=== PATIENT | male | born 2000 | race Two or more races ===

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

== ENCOUNTER 2024-03-25 06:01 | Emergency (ER) | payer MEDICAID ==
[~2024-03-25] VITALS: Ht 170.2 cm; Wt 72.0 kg
[2024-03-25 06:01] VITALS: BP 152/97; PULSE 91; RESP 20; O2SAT 99
[2024-03-25 06:58] LABS: Basophils # (auto) 0 10 ^3/uL (0-0.2); Basophils % (auto) 0.2 % (0.0-2.0); Eosinophils # (auto) 0 10 ^3/uL (0-0.8); Eosinophils % (auto) 0.1 % (0.0-7.0); Hematocrit 47.2 % (41.0-53.0); Lymphocytes # (auto) 0.6 10 ^3/uL (0.4-5.4); Lymphocytes % (auto) 4.4 % (10.0-50.0); Mean Corpuscular Hemoglobin 30.7 pg (28.0-32.0); Mean Corpuscular Hgb Conc. 33.9 g/dL (32.0-36.0); Mean Corpuscular Volume 90.6 fL (80.0-100.0); Monocytes # (auto) 0.4 10 ^3/uL (0-1.3); Monocytes % (auto) 2.9 % (0.0-12.0); Neutrophils # (auto) 13.7 10 ^3/uL (1.6-8.6); Neutrophils % (auto) 92.4 % (37.0-80.0); Platelet Count (auto) 264 10^3/uL (140-450); Red Blood Cells 5.21 10^6/uL (4.5-5.90); Red Cell Distribution Width 14.4 % (11.8-14.3); White Blood Cell 14.8 10^3/uL (4.4-10.8)
[2024-03-25 07:06] LABS: Chloride 108 mmol/L (98-107); Potassium 3.8 mmol/L (3.5-5.1); Sodium 142 mmol/L (136-145)
[2024-03-25 07:07] LABS: Anion Gap 8 (5-15); Carbon Dioxide 26 mmol/L (20-30)
[2024-03-25 07:08] LABS: Calcium 10.5 mg/dL (8.7-10.4)
[2024-03-25 07:12] LABS: BUN/Creatinine Ratio 8.9 (10.0-20.0); Blood Urea Nitrogen 8 mg/dL (9-23); Glucose 146 mg/dL (74-106)
[2024-03-25] MEDS ORDERED: SODIUM CHLORIDE 0.9% 1,000 ML IV ONE (08:30)
[2024-03-25] MEDS ORDERED: SODIUM CHLORIDE 0.9% 1,000 ML IVB ONE (08:30)
[2024-03-25] MEDS ORDERED: cefTRIAXone 1GM/50ML D5W 50 ML IV ONE (08:30)
[2024-03-25] MEDS ORDERED: MORPHINE SULFATE 4 MG/ML SYR/VIAL IV ONE (08:30)
[2024-03-25] MEDS ORDERED: ONDANSETRON HCL 4 MG/2 ML VIAL IV ONE (08:30)
== END 2024-03-25 09:44 | disposition left against medical advice (07) ==
LOC: ER 06:01
DX: K52.9 Noninfective gastroenteritis and colitis, unspecified (principal); D72.829 Elevated white blood cell count, unspecified; R10.13 Epigastric pain
CPT/HCPCS: 36415; 80048; 85025

== ENCOUNTER 2024-09-01 08:14 | Emergency (ER) | payer MEDICAID ==
[~2024-09-01] VITALS: Ht 165.1 cm; Wt 79.8 kg
[2024-09-01] MEDS: HYDROcodone-ACET 7.5/325MG TAB PO ONE (11:12)
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
[2024-09-01] MEDS ORDERED: IBUP-1456 PO (12:22)
[2024-09-01] MEDS ORDERED: METH-1181 PO (12:22)
[2024-09-01] MEDS ORDERED: AUG875T PO (12:22)
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
[2024-09-01 12:30] VITALS: BP 126/80; PULSE 80; RESP 18; TEMP 98.3; O2SAT 98
== END 2024-09-01 12:37 | disposition home or self-care (01) ==
LOC: ER 08:14
DX: J32.9 Chronic sinusitis, unspecified (principal); Z79.1 Long term (current) use of non-steroidal anti-inflammatories (NSAID); Y04.8XXA Assault by other bodily force, initial encounter; Y93.89 Activity, other specified; Y92.89 Other specified places as the place of occurrence of the external cause; Y99.8 Other external cause status
CPT/HCPCS: 70450; 70486; 73130